=== PATIENT | female | born 1935 | race Caucasian/White ===

== ENCOUNTER 2017-04-15 12:38 | Emergency (ER) | payer MEDICAID, MEDICARE, OTHER ==
[2017-04-15 15:08] VITALS: BP 121/77
--- NOTE | 2017-04-15 15:10 | CT ---
INDICATION: Increased confusion, disorientation. Has dementia. CT HEAD WITHOUT CONTRAST: Serial contiguous 2.5 and 5-mm sections were obtained through the brain without contrast 04/15/2017. No comparisons were available. The paranasal sinuses and the mastoid air cells are fairly well aerated. No definite cranial abnormality is identified. There is some minimal calcification in the right vertebral artery. Calcifications are noted in the internal carotid arteries. No definite shift of midline structures was identified. Ventricles are prominent, compatible with central atrophy. Cortical sulci are only very minimally prominent. Calcifications noted in the basal ganglia most likely are not of clinical significance. There are mild white matter changes compatible with microvascular disease, although other cause of leukoencephalopathy cannot be excluded. No acute intracranial abnormality was identified - no bleeding site or hematoma was seen. IMPRESSION: 1. No acute intracranial abnormality. 2. Central atrophy of mild degree. Minimal cortical atrophy. 3. Cerebrovascular disease. 4. Mild degree of white matter changes compatible with microvascular disease - correlate clinically. Report was called to Dr. Ramos at 1440 hours, 04/15/2017. Total Exam DLP = 949.36 mGy-cm. MTDD
--- NOTE | 2017-04-16 16:00 | ER ---
DATE SEEN: 04/15/2017 TIME SEEN: The patient was seen at 1250 hours. CHIEF COMPLAINT: Confusion. HISTORY OF PRESENT ILLNESS: This 82-year-old woman is brought in by her daughter for further evaluation of her mental fall away-dementia. She is noted to have dementia in the last 3 to 4 years and this has been treated with donepezil 5 mg at bedtime, memantine 1 tablet at bedtime. These medications did not change her dementia. The last time she was considered fully alert, was when she saw her doctor in [place] on 03/29/2017. The following day, she drove herself to the [employer] and got her hair fixed. On , 03/31/2017, she was noted by her daughter halie more confused. Each summer, the patient's daughter, son-in-law, and the patient come to [place]. He contract to pain all summer. The son-in-law is a contract toy painter and he works from March through August. They live in a recreational vehicle during this period of time. More recently, the daughter notes the patient has become more confused. The patient notes she feels she is "...not myself and I cannot remember things." Her lossof memory has made her more scared. Yesterday, she was found on another street not too far from the and could not find her way home. This has happened several other times in the last 2 or 3 days. She was seen at [facility], 04/09/2017, and the confusion was thought to be from a urinary tract infection, The Ua was negative and she didnt have a UTI. PAST MEDICAL HISTORY: No previous surgery. No serious illnesses, hospitalizations, diabetes, heart disease, strokes, asthma, head trauma, seizures, or neurologic disease. REVIEW OF SYSTEMS: Further review of systems has constant scratching of abdomen dermis. Etiology is indeterminate. CURRENT MEDICATIONS: 1. Namenda XR at bedtime. 2. Donepezil 5 mg at bedtime. 3. Amlodipine 5 mg daily. 4. Pravastatin 20 mg daily. 5. Potassium chloride 20 mEq daily. 6. Levothyroxine 50 mcg daily. 7. Vitamin D 2000 units daily. 8. Risperdal 0.5 mg b.i.d. PHYSICAL EXAMINATION: VITAL SIGNS: Blood pressure 114/64, heart rate 78, respirations 22, oxygen saturation 97%, and temperature is 36.2 degrees centigrade. GENERAL: Alert, very asthenic, petite, small, thin woman, in no acute distress. It is very apparent that she ether has a wig or very dry hair. HEENT: TMs negative. Pharynx without abnormality. No nystagmus. Eyegrounds normal. Pharynx negative. She has her own teeth. NECK: No bruits. No thyromegaly. No masses. Range of motion neck is normal. LUNGS: Clear to auscultation without rales, rhonchi, or wheezes. HEART: S1, S2. No murmur. No irregular rate and rhythm. ABDOMEN: Soft. No guarding. No abdominal discomfort. Bowel sounds normal. EXTREMITIES: Without edema. NEUROLOGIC: Cranial nerves 2 through 12 intact. Oriented x3. Fund of knowledge is decreased. She does not perseverate. She has good eye contact. The patient is well dressed. She articulates her sentences. Response is appropriate. No pronator drift. No tremor. No dysmetria. Gait is normal. No ataxia. Strength in upper and lower extremities are good. ABDOMEN/DERMIS: Mild chronic superficial excoriation with slight pigmentation changes secondary to chronic itching the entire upper two-thirds of the abdomen. No lesions noted in the abdomen. EXTREMITIES: No pedal edema. LABORATORY FINDINGS: White count 7400, PMNs 83, lymphocytes 13, and monos 3. Sodium 138, potassium 4.1, chloride 103, bicarb 28. The remainder of this complete metabolic panel is normal. Troponin is less than 0.01. Urinalysis; moderate squamous epithelial cells, moderate bacteria, 20 to 30 rbc's, large occult blood, and 0 to 5 wbc's. ASSESSMENT: 1. Did perform a Folstein mini mental status. She has scored approximately 15 to 17 points. This suggests dementia is significant. 2. She is using 2 dementia medications, which probably do not make a big difference. 3. There is new mental fall away suggesting increasing dementia. No change in her CAT scan today. She has decreased white matter with microvascular disease and atrophy significant. 4. This new confusion and getting lost is a reflection of progressive dementia. I advised the daughter that she needs to watch her mother more closely almost all the time and/or have a Medi Alert device that she can call the daughter should she have difficulty or get lost, and perhaps in the future, she will need more supervised living environment. At present, it is good that she lives with her daughter and son-in-law throughout the summer and the daughter is capable of being present with her. I did not find any new significant pathology that warrants hospitalization. /[id number] ABI/STAR AGUILAR
== END 2017-04-15 15:15 | disposition home or self-care (01) ==
LOC: FB.ED 12:38
DX: F03.90 Unspecified dementia, unspecified severity, without behavioral disturbance, psychotic disturbance, mood disturbance, and anxiety (principal); Z79.899 Other long term (current) drug therapy
CPT/HCPCS: 36415; 70450; 80053; 81001; 84443; 84484; 85025; 99282; 99285